=== PATIENT | male | born 1990 | race Caucasian/White ===

== ENCOUNTER 2016-12-03 11:08 | Emergency (ER) | payer OTHER ==
[~2016-12-03] VITALS: Ht 172.7 cm; Wt 85.5 kg
[2016-12-03 11:09] VITALS: BP 135/68
[2016-12-03] MEDS ORDERED: IBUP-1022 PO (11:14)
--- NOTE | 2016-12-03 13:13 | REP ---
LEFT SHOULDER, THREE VIEWS: There is no evidence of an acute fracture, dislocation or intrinsic bone disease. IMPRESSION: No fracture or dislocation. Signed by Jeff Mcguire MD 12/04/2016 04:27 P
== END 2016-12-03 13:22 | disposition home or self-care (01) ==
LOC: M ED 11:08
DX: S40.012A Contusion of left shoulder, initial encounter (principal); W20.8XXA Other cause of strike by thrown, projected or falling object, initial encounter; Y92.094 Garage of other non-institutional residence as the place of occurrence of the external cause; Y93.89 Activity, other specified; Y99.9 Unspecified external cause status

== ENCOUNTER → 2018-09-23 | Outpatient (REF) | payer OTHER ==
[~2018-09-23] MED LIST: IBUP-1022 PO
[2018-09-23 13:54] LABS: SEMEN APPEARANCE OPAQUE (OPAQUE); SEMEN VISCOSITY LIQUID (LIQUID); SEMEN pH 8.5 (7.0-8.0); SPERM CONCENTRATION 24.7 M/ml (>=15.0); WBC CONCENTRATION >1 M/ml (<=1 M/ml)
== END ==
LOC: M LAB REF 13:44
PROVIDERS: ATTEND Obstetrics & Gynecology
DX: N46.9 Male infertility, unspecified (principal)